=== PATIENT | female | born 1985 | race Two or more races ===

== ENCOUNTER 2021-07-21 19:15 | Emergency (ER) | payer SELFPAY ==
[2021-07-21] MEDS ORDERED: Sodium Chloride 0.9% 1,000 ML IV ONE (21:04)
--- NOTE | 2021-07-21 21:06 | EDM.PDOC ---
<Cedrick Broussard - Last Filed: 07/21/21 22:58> ED HPI GENERAL MEDICAL PROBLEM - General Chief Complaint: ENT Problem Stated Complaint: SWOLLEN TONCILS TIERD Time Seen by Provider: 07/21/21 20:44 - History of Present Illness INITIAL COMMENTS - FREE TEXT/NARRATIVE: 10:58 PM: Patient's labs are all within normal limits. Patient's mono test was negative. Patient's strep screen is negative. Patient's Covid test however did box turner positive. Patient is resting comfortably in bed right now and feels well. Patient's pulse ox is 98 to 99% on room air and does not appear to be tachypneic. Patient's lungs are clear without any wheezing rales or rhonchi. I have discussed the results with the patient and her and they understand all the results as outlined. They understand that she will need to be quarantined as well as her and any other close contacts. She has not had a Covid vaccine as of yet. They will be given instructions to take acetaminophen and ibuprofen as needed for fever and to return to the ED if she has worsening shortness of breath. They will also be given the phone number for the health department to contact for further quarantine information. Patient required treatment with intravenous normal saline solution secondary to clinical evidence of dehydration as manifested by history and physical examination. 1. Your COVID-19 screening is positive. That means you do have the coronavirus and you are considered contagious. Your vital signs and oxygen saturation are well enough that you were able to monitor your symptoms at home. Continue to monitor for trouble breathing, new confusion or inability to arouse, bluish lips or face or any of the other symptoms we discussed -if this occurs please return to the emergency room. 2. Please self quarantine over the next 10 days. Inform any persons that you have been in contact with since you started becoming symptomatic that you have tested positive; they should be made aware and take the appropriate steps as needed. 3. You can take NyQuil during the evening to help get a restful night sleep. May alternate Tylenol and ibuprofen as needed for pain and fever management. 4. [facility] will be calling you and following up with you. The [place] COVID 19 Hotline phone number , They are open Saturday - Saturday 7am - 7pm. Follow up with your primary care provider for re-evaluation and re-testing after the 10 day quarantine and discuss when you should be seen. Reassessment at the time of disposition demonstrates that the patient is in no acute distress. The patient has remained stable throughout the entire ED visit and is without objective evidence for acute process requiring urgent intervention or hospitalization. The patient is stable for discharge, counseling is provided as documented above, discussed symptomatic treatment and specific conditions for return. I have spoken with the patient/caregiver and discussed todays findings, in addition to providing specific details for the plan of care. Questions are answered and there is agreement with the plan. - Related Data Allergies Allergy/AdvReac Type Severity Reaction Status Date / Time No Known Allergies Allergy Verified 07/21/21 19:35 Home Meds: Home Meds . [No Known Home Meds] 07/21/21 [History] ED ROS GENERAL - Review of Systems Review Of Systems: See Below ED EXAM, GENERAL - Physical Exam Exam: See Below Departure - Departure Time of Disposition: 22:59 Disposition: Home, Self-Care 01 Clinical Impression: COVID-19 virus infection - Discharge Information Instructions: 10 Things You Can Do to Manage Your COVID-19 Symptoms at Home - CDC (04/21/2021), Symptoms of COVID-19 - [facility] (11/28/2020) Referrals: PCP,None [Primary Care Provider] - Forms: ED Department Discharge Additional Instructions: You were seen and evaluated in the ER today secondary to his symptoms of a viral infection. Although all your blood tests were normal, your Covid test was pos itive. This means that you have contracted the Covid virus. Please return to the ED if you start developing increasing shortness of breath. You will need to self quarantine for the next 7 days. You will be given the phone number for the health department to call for further questions. 1. Your COVID-19 screening is positive. That means you do have the coronavirus and you are considered contagious. Your vital signs and oxygen saturation are well enough that you were able to monitor your symptoms at home. Continue to monitor for trouble breathing, new confusion or inability to arouse, bluish lips or face or any of the other symptoms we discussed -if this occurs please return to the emergency room. 2. Please self quarantine over the next 10 days. Inform any persons that you have been in contact with since you started becoming symptomatic that you have tested positive; they should be made aware and take the appropriate steps as needed. 3. You can take NyQuil during the evening to help get a restful night sleep. May alternate Tylenol and ibuprofen as needed for pain and fever management. 4. The [facility] will be calling you and following up with you. The [place] JAIMIE 19 Hotline phone number , They are open Saturday - Saturday 7am - 7pm. Follow up with your primary care provider for re-evaluation and re-testing after the 10 day quarantine and discuss when you should be seen. The following information is given to patients seen in the emergency department who are being discharged to home. This information is to outline your options for follow-up care. We provide all patients seen in our emergency department with a follow-up referral. The need for follow-up, as well as the timing and circumstances, are variable depending upon the specifics of your emergency department visit. If you don't have a primary care physician on staff, we will provide you with a referral. We always advise you to contact your personal physician following an emergency department visit to inform them of the circumstance of the visit and for follow-up with them and/or the need for any referrals to a consulting specialist. The emergency department will also refer you to a specialist when appropriate. This referral assures that you have the opportunity for follow-up care with a specialist. All of these measure are taken in an effort to provide you with optimal care, which includes your follow-up. Under all circumstances we always encourage you to contact your private physician who remains a resource for coordinating your care. When calling for follow-up care, please make the office aware that this follow-up is from your recent emergency room visit. If for any reason you are refused follow-up, please contact the [facility] Emergency Department at and asked to speak to the emergency department charge nurse. [facility] [address] [place] [id number] [address] Thank you for choosing the [facility] emergency department in [place] for your medical needs today. It was a pleasure caring for you. Today you were seen in the emergency department for weakness and fatigue. 1. You were evaluated today on an emergent basis. Your labs are within normal limits. Please drink plenty of fluids and get adequate rest. 2. You can alternate Tylenol and ibuprofen as needed for pain and fever management. 3. We encourage you to follow up with your primary care provider and/or recommended specialist in the next few days for re-evaluation and further care/management. 4. If your symptoms should worsen, new symptoms develop or any of the signs and symptoms we discussed should arise please return to the emergency room or call 911 (if needed). <Thai Gan E - Last Filed: 07/22/21 09:56> ED HPI GENERAL MEDICAL PROBLEM - General Source of Information: Reports: Patient History Limitations: Reports: No Limitations - History of Present Illness INITIAL COMMENTS - FREE TEXT/NARRATIVE: HISTORY AND PHYSICAL: History of present illness: Patient is a 36-year-old female who presents to the emergency room with complaints of fatigue, weakness and generally feeling unwell. She states approximately a week ago she had a dry cough and sore throat. She had some leftover amoxicillin and had been taking these frequently over 3 to 4 days (over the weekend), believes she may have taken 20 to 30 pills in total. She states her cough and sore throat have improved but now she feels generally fatigued. Today she went to work and was so "tired" and felt like she would pass out that she went home early. Patient denies any fever, chills, headache, change in vision, or syncope. Denies any chest pain, back pain, shortness of breath. Denies any abdominal pain, nausea, vomiting, diarrhea, constipation or dysuria. Has not noted any blood in urine or stool. No concern for , states she has had a total hysterectomy. *[employer] translation services was used: Sean speaking Review of systems: As per history of present illness and below otherwise all systems reviewed and negative. Past medical history: As per history of present illness and as reviewed below otherwise noncontributory. Surgical history: As per history of present illness and as reviewed below otherwise noncontributory. Social history: See social history for further information Family history: As per history of present illness and as reviewed below otherwise noncontributory. Physical exam: General: Well developed and well nourished 36-year-old female. Alert and orientated x 3. Nontoxic in appearance and in no acute distress. Vital signs are stable and have been reviewed by me. Nursing notes were reviewed. HEENT: Atraumatic, normocephalic, pupils equal and reactive bilaterally, negative for conjunctival pallor or scleral icterus, mucous membranes moist, TMs normal bilaterally, throat mildly erythematous without exudate or pillar shifting, neck supple, nontender, trachea midline. No lymphadenopathy. No drooling or trismus noted. No meningeal signs. No hot potato voice noted. Lungs: Clear to auscultation bilaterally. No wheezes, rales, or rhonchi. Chest nontender. Normal work of breathing, no accessory muscles used. Heart: S1S2, regular rate and rhythm without overt murmur, gallops, or rubs. No JVD. No peripheral edema Abdomen: Soft, nondistended, nontender. Normoactive bowel sounds. Negative for masses or costovertebral tenderness. Skin: Intact, warm, dry. No lesions or rashes noted. Hematologic: No petechiae or purpra. Mucosa appropriate color and normal nail bed color and refill. Extremities: Atraumatic, moves all extremities per self without difficulty or deficits, negative for cords or calf pain. Neurovascular unremarkable. Neuro: Awake, alert, oriented. Cranial nerves II through XII unremarkable. Cereb ellum unremarkable. Motor and sensory unremarkable throughout. Exam nonfocal. Psychiatric: Mood and affect are appropriate. Normal thought process. Answering questions appropriately. Please note that the patient was seen and evaluated during the 2019 SARS-CoV-2 novel coronavirus pandemic period. Community viral transmission is ongoing at time of this encounter and the emergency department is operating under pandemic response procedures. Medical Decision Making: Patient is a 36-year-old female who presents to the emergency room with complaints of general fatigue, weakness and resolving cough and sore throat. Patient states she has felt well for approximately 1 week. Today she had to leave work early as she thought she was going to pass out. Patient is agreeable to basic lab work and IV fluids at this time. Patient's lab work is unremarkable with the exception of positive COVID-19 testing. She does feel improved after the fluids. VSS. I have talked with the patient about today's findings, in addition to providing specific details for plan of care. Reassessment at the time of disposition demonstrates that the patient is in no acute distress. The patient is stable for discharge, counseling was provided and we discussed in great detail signs and symptoms that would prompt them to return to the Emergency Department. Medication, follow up and supportive care measures were reviewed and discussed. Voices understanding and is agreeable to plan of care. Denies any further questions or concerns at this time. Diagnostics: CBC, CMP, Monospot, Strep, COVID, [employer]: NS Prescription: None Impression: COVID-19 Plan: 1. You were evaluated today on an emergent basis. Your labs are within normal limits. Please drink plenty of fluids and get adequate rest. 2. You can alternate Tylenol and ibuprofen as needed for pain and fever management. 3. We encourage you to follow up with your primary care provider and/or recommended specialist in the next few days for re-evaluation and further care/management. 4. If your symptoms should worsen, new symptoms develop or any of the signs and symptoms we discussed should arise please return to the emergency room or call 911 (if needed). Definitive disposition and diagnosis as appropriate pending reevaluation and review of above. 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 ED EXAM, GENERAL - Physical Exam Exam: See Below (See idctation) Course - Vital Signs Last Recorded V/S: Last Vital Signs Temp 97 F 07/21/21 19:27 Pulse 68 07/21/21 23:22 Resp 14 07/21/21 23:22 BP 103/60 07/21/21 23:22 Pulse Ox 100 07/21/21 23:22 - Orders/Labs/Meds Orders: Active Orders 24 hr Category Date Time Status THROAT CULTURE [MREF] Stat Lab 07/21/21 20:35 Received Labs: Laboratory Tests 07/21/21 07/21/21 07/21/21 Range/Units 21:33 21:35 21:45 WBC 4.69 (4.0-11.0) K/uL RBC 4.77 (4.30-5.90) M/uL Hgb 12.4 (12.0-16.0) g/dL Hct 37.5 (36.0-46.0) % MCV 78.6 L (80.0-98.0) fL MCH 26.0 L (27.0-32.0) pg MCHC 33.1 (31.0-37.0) g/dL RDW Std Deviation 41.0 (28.0-62.0) fl RDW Coeff of Lola 14 (11.0-15.0) % Plt Count 260 (150-400) K/uL MPV 9.60 (7.40-12.00) fL Neut % (Auto) 52.8 (48.0-80.0) % Lymph % (Auto) 36.2 (16.0-40.0) % [place] % (Auto) 10.2 (0.0-15.0) % Eos % (Auto) 0.6 (0.0-7.0) % Baso % (Auto) 0.2 (0.0-1.5) % Neut # (Auto) 2.5 (1.4-5.7) K/uL Lymph # (Auto) 1.7 (0.6-2.4) K/uL [place] # (Auto) 0.5 (0.0-0.8) K/uL Eos # (Auto) 0.0 (0.0-0.7) K/uL Baso # (Auto) 0.0 (0.0-0.1) K/uL Nucleated RBC % 0.0 /100WBC Nucleated RBCs # 0 K/uL Sodium (136-145) mmol/L Potassium (3.5-5.1) mmol/L Chloride (98-107) mmol/L Carbon Dioxide (21.0-32.0) mmol/L BUN (7.0-18.0) mg/dL Creatinine (0.6-1.0) mg/dL Est Cr Clr Drug Dosing mL/min Estimated GFR (MDRD) ml/min Glucose (74-106) mg/dL Calcium (8.5-10.1) mg/dL Total Bilirubin (0.2-1.0) mg/dL AST (15-37) IU/L ALT (14-63) IU/L Alkaline Phosphatase (46-116) U/L Total Protein (6.4-8.2) g/dL Albumin (3.4-5.0) g/dL Globulin (2.6-4.0) g/dL Albumin/Globulin Ratio (0.9-1.6) Urine Color YELLOW Urine Appearance CLEAR Urine pH 6.5 (5.0-8.0) Ur Specific [place] 1.020 (1.001-1.035) Urine Protein NEGATIVE (NEGATIVE) mg/dL Urine Glucose (UA) NEGATIVE (NEGATIVE) mg/dL Urine Ketones NEGATIVE (NEGATIVE) mg/dL Urine Occult Blood TRACE-INTACT H (NEGATIVE) Urine Nitrite NEGATIVE (NEGATIVE) Urine Bilirubin NEGATIVE (NEGATIVE) Urine Urobilinogen 0.2 (<2.0) EU/dL Ur Leukocyte Esterase NEGATIVE (NEGATIVE) Urine RBC 0-1 (0-2/HPF) Urine WBC 0-1 (0-5/HPF) Ur Epithelial Cells RARE (NONE-FEW) Urine Bacteria RARE (NEGATIVE) Monoscreen (NEG) SARS-CoV-2 RNA (TSERING) POSITIVE H (NEGATIVE) 07/21/21 07/21/21 Range/Units 21:45 21:45 WBC (4.0-11.0) K/uL RBC (4.30-5.90) M/uL Hgb (12.0-16.0) g/dL Hct (36.0-46.0) % MCV (80.0-98.0) fL MCH (27.0-32.0) pg MCHC (31.0-37.0) g/dL RDW Std Deviation (28.0-62.0) fl RDW Coeff of Lola (11.0-15.0) % Plt Count (150-400) K/uL MPV (7.40-12.00) fL Neut % (Auto) (48.0-80.0) % Lymph % (Auto) (16.0-40.0) % [place] % (Auto) (0.0-15.0) % Eos % (Auto) (0.0-7.0) % Baso % (Auto) (0.0-1.5) % Neut # (Auto) (1.4-5.7) K/uL Lymph # (Auto) (0.6-2.4) K/uL [place] # (Auto) (0.0-0.8) K/uL Eos # (Auto) (0.0-0.7) K/uL Baso # (Auto) (0.0-0.1) K/uL Nucleated RBC % /100WBC Nucleated RBCs # K/uL Sodium 140 (136-145) mmol/L Potassium 4.2 (3.5-5.1) mmol/L Chloride 104 (98-107) mmol/L Carbon Dioxide 27.3 (21.0-32.0) mmol/L BUN 10 (7.0-18.0) mg/dL Creatinine 0.8 (0.6-1.0) mg/dL Est Cr Clr Drug Dosing 69.73 mL/min Estimated GFR (MDRD) > 60.0 ml/min Glucose 96 (74-106) mg/dL Calcium 8.3 L (8.5-10.1) mg/dL Total Bilirubin 0.3 (0.2-1.0) mg/dL AST 24 (15-37) IU/L ALT 20 (14-63) IU/L Alkaline Phosphatase 40 L (46-116) U/L Total Protein 7.8 (6.4-8.2) g/dL Albumin 3.1 L (3.4-5.0) g/dL Globulin 4.7 H (2.6-4.0) g/dL Albumin/Globulin Ratio 0.7 L (0.9-1.6) Urine Color Urine Appearance Urine pH (5.0-8.0) Ur Specific [place] (1.001-1.035) Urine Protein (NEGATIVE) mg/dL Urine Glucose (UA) (NEGATIVE) mg/dL Urine Ketones (NEGATIVE) mg/dL Urine Occult Blood (NEGATIVE) Urine Nitrite (NEGATIVE) Urine Bilirubin (NEGATIVE) Urine Urobilinogen (<2.0) EU/dL Ur Leukocyte Esterase (NEGATIVE) Urine RBC (0-2/HPF) Urine WBC (0-5/HPF) Ur Epithelial Cells (NONE-FEW) Urine Bacteria (NEGATIVE) Monoscreen NEGATIVE (NEG) SARS-CoV-2 RNA (TSERING) (NEGATIVE) Meds: Medications Discontinued Medications Generic Name Dose Route Start Last Admin Trade Name Freq PRN Reason Stop Dose Admin Sodium Chloride 1,000 mls @ 999 mls/hr 07/21/21 21:04 07/21/21 21:45 Normal Saline IV 07/21/21 22:04 999 mls/hr STAT ONE Administration Sepsis Event Note (ED) - Focused Exam Vital Signs: Vital Signs Pulse Resp BP Pulse Ox 07/21/21 23:22 68 14 103/60 100 - My Orders Last 24 Hours: My Active Orders 07/21/21 20:35 THROAT CULTURE [MREF] Stat - Assessment/Plan Last 24 Hours: My Active Orders 07/21/21 20:35 THROAT CULTURE [MREF] Stat
[2021-07-21 22:17] LABS: BLOOD UREA NITROGEN,BUN 10 mg/dL (7.0-18.0); CARBON DIOXIDE,CO2 27.3 mmol/L (21.0-32.0); CHLORIDE,CL 104 mmol/L (98-107); GLUCOSE RANDOM 96 mg/dL (74-106); POTASSIUM,K 4.2 mmol/L (3.5-5.1); SODIUM,NA 140 mmol/L (136-145)
== END 2021-07-21 23:29 | disposition home or self-care (01) ==
LOC: MW.ED 19:15
DX: U07.1 COVID-19 (principal)
CPT/HCPCS: 36415; 80053; 81001; 85025; 86308; 87070; 87635; 87880; 99283; J7030; U0002